=== PATIENT | male | born 2000 | race Caucasian/White ===

== ENCOUNTER 2021-05-24 12:41 | Emergency (ER) | payer BC ==
[~2021-05-24] VITALS: Ht 172.7 cm; Wt 113.4 kg
== END 2021-05-24 16:54 | disposition home or self-care (01) ==
LOC: ER 12:41
DX: S43.101A Unspecified dislocation of right acromioclavicular joint, initial encounter (principal); V86.69XA Passenger of other special all-terrain or other off-road motor vehicle injured in nontraffic accident, initial encounter
CPT/HCPCS: 72040; 73030; 99283-25